=== PATIENT | female | born 1990 | race Caucasian/White ===

== ENCOUNTER 2017-05-04 12:02 | Emergency (ER) | payer BC, SELFPAY ==
[~2017-05-04] VITALS: Ht 165.1 cm; Wt 74.8 kg
[~2017-05-04 12:02] MED LIST: ACYC400 PO; CYCL10 PO; DIAZ10 PO; HYDACE5 PO; IBUP800 PO; LEVO750 PO; NAPR500 PO; NITR100CA PO; Naprosyn500 MG PO; PHENA200 PO; Valium5 MG PO
[2017-05-04] MEDS ORDERED: VENL75ER PO (15:24)
[2017-05-04] MEDS ORDERED: GABA300 PO (15:24)
[2017-05-04] MEDS ORDERED: COPAXONE40 MG/1 ML SQ (15:24)
[2017-05-04] MEDS ORDERED: Percocet 5-3251 EACH PO (16:59)
[2018-02-23] MEDS ORDERED: Percocet 5-3251 EACH PO (11:44)
[2018-02-23] MEDS ORDERED: IBUP800 PO (11:45)
== END 2017-05-04 17:06 | disposition home or self-care (01) ==
LOC: ER 12:02
DX: M54.31 Sciatica, right side (principal); F41.8 Other specified anxiety disorders; G35 Multiple sclerosis; Z79.899 Other long term (current) drug therapy
CPT/HCPCS: 81000; 81025; 96372; 99283; J1170

== ENCOUNTER 2017-05-07 10:58 | Day surgery (SDC) | payer BC, SELFPAY ==
[~2017-05-07 10:58] MED LIST changes: +COPAXONE40 MG/1 ML SQ; +GABA300 PO; +Percocet 5-3251 EACH PO; +VENL75ER PO
[2017-05-08] MEDS ORDERED: CYAN500 PO (09:40)
[2017-05-08] MEDS ORDERED: ERGO400 PO (09:40)
[2017-05-08] MEDS ORDERED: FOLI1 PO (09:40)
[2018-02-23] MEDS ORDERED: Percocet 5-3251 EACH PO (11:44)
[2018-02-23] MEDS ORDERED: IBUP800 PO (11:45)
== END 2017-05-07 12:40 | disposition home or self-care (01) ==
LOC: ATC 10:58
DX: G35 Multiple sclerosis (principal)
CPT/HCPCS: 96365; J2930

== ENCOUNTER 2017-05-08 00:51 | Day surgery (SDC) | payer BC, SELFPAY ==
[2017-05-08] MEDS ORDERED: FOLI1 PO (09:40)
[2017-05-08] MEDS ORDERED: CYAN500 PO (09:40)
[2017-05-08] MEDS ORDERED: ERGO400 PO (09:40)
[2018-02-23] MEDS ORDERED: Percocet 5-3251 EACH PO (11:44)
[2018-02-23] MEDS ORDERED: IBUP800 PO (11:45)
== END 2017-05-08 10:06 | disposition home or self-care (01) ==
LOC: ATC 00:51
DX: G35 Multiple sclerosis (principal)
CPT/HCPCS: 96365; J2930

== ENCOUNTER 2017-05-09 00:42 | Day surgery (SDC) | payer BC, SELFPAY ==
[~2017-05-09 00:42] MED LIST changes: +CYAN500 PO; +ERGO400 PO; +FOLI1 PO
[2018-02-23] MEDS ORDERED: Percocet 5-3251 EACH PO (11:44)
[2018-02-23] MEDS ORDERED: IBUP800 PO (11:45)
== END 2017-05-09 10:07 | disposition home or self-care (01) ==
LOC: ATC 00:42
DX: G35 Multiple sclerosis (principal)
CPT/HCPCS: 96365; J2930

== ENCOUNTER 2018-05-07 14:55 | Emergency (ER) | payer BC ==
[~2018-05-07] VITALS: Ht 165.1 cm; Wt 83.0 kg
[2018-05-07 17:26] LABS: Source, Urine Clean Catch
[2018-05-07 17:32] LABS: Appearance, Urine Clear (Clear); Bilirubin, Urine Neg (Neg); Blood, Urine Neg (Neg); Color, Urine Yellow (P-Yellow); Glucose Qualitative, Urine Neg (Neg); Ketones, Urine Neg (Neg); Leukocyte Esterase, Urine Neg (Neg); Nitrite, Urine Neg (Neg); Protein, Urine Neg (Neg); Specific Gravity, Urine 1.015 (1.003-1.022); Urobilinogen, Urine NORM (Normal); pH, Urine 6.5 (5.0-8.0)
[2018-05-07 18:31] LABS: BASOPHILS ABSOLUTE AUTO 0.03 K/mm3 (0.00-0.23); BASOPHILS PERCENT AUTO 0 % (0-2); EOSINOPHILS ABSOLUTE AUTO 0.37 K/mm3 (0.00-0.68); EOSINOPHILS PERCENT AUTO 3 % (0-6); Hematocrit 42.7 % (33.0-51.0); Hemoglobin 13.6 g/dL (11.5-16.0); IMMATURE GRAN ABSOLUTE AUTO 0.05 K/mm3 (0.00-0.10); IMMATURE GRAN PERCENT AUTO 0 % (0-1); LYMPHOCYTES ABSOLUTE AUTO 2.23 K/mm3 (0.84-5.20); LYMPHOCYTES PERCENT AUTO 16 % (21-46); MONOCYTES ABSOLUTE AUTO 0.65 K/mm3 (0.16-1.47); MONOCYTES PERCENT AUTO 5 % (4-13); Mean Corpuscular HGB 29.3 pg (26.0-34.0); Mean Corpuscular HGB Conc 31.9 g/dL (31.5-36.5); Mean Corpuscular Volume 92 fL (80-100); Mean Platelet Volume 10.6 fL (9.1-12.4); NEUTROPHILS ABSOLUTE AUTO 10.84 K/mm3 (1.96-9.15); NEUTROPHILS PERCENT AUTO 77 % (41-73); Platelet Count 309 K/mm3 (150-400); RDW Standard Deviation 43.9 fL (35.1-46.3); Red Blood Cell Count 4.64 M/mm3 (3.80-5.20); White Blood Cell Count 14.17 K/mm3 (4.00-11.30)
[2018-05-07 18:46] LABS: Alanine Aminotransfer (ALT/SGP 43 U/L (12-78); Albumin, Blood 3.4 g/dL (3.4-5.0); Albumin/Globulin Ratio 0.9 (0.8-1.8); Alk Phos 98 U/L (50-136); Anion Gap 6 mmol/L (6-16); Aspartate Aminotrans (AST/SGOT 16 U/L (12-37); Bilirubin, Total 0.2 mg/dL (0.1-1.0); Blood Urea Nitrogen 10 mg/dL (8-24); Bun/Creatinine Ratio 10.3 (12.0-20.0); CO2, Blood 27 mmol/L (21-32); Calcium, Blood 8.5 mg/dL (8.5-10.1); Chloride, Blood 108 mmol/L (98-108); Creatinine, Blood 0.98 mg/dL (0.40-1.00); Free Thyroxine 0.95 ng/dL (0.70-1.60); Globulin, Blood 3.7 g/dL (2.2-4.0); Glomerular Filtration Rate >60 (60-); Glucose, Blood 76 mg/dL (70-99); Potassium, Blood 3.9 mmol/L (3.5-5.5); Sodium, Blood 141 mmol/L (136-145); Total Protein, Blood 7.1 g/dL (6.4-8.2)
[2018-05-07 18:50] LABS: Triiodothyronine, Free 2.29 pg/mL (2.18-3.98)
[2018-05-07] MEDS ORDERED: IBUP600 PO (18:51)
[2018-05-07] MEDS ORDERED: Norco 5-325 Ta1 EACH PO (18:51)
== END 2018-05-07 19:08 | disposition home or self-care (01) ==
LOC: ER 14:55
PROVIDERS: Emergency Medicine
DX: G35 Multiple sclerosis (principal); Z79.899 Other long term (current) drug therapy; F17.200 Nicotine dependence, unspecified, uncomplicated
CPT/HCPCS: 36415; 80053; 81003; 81025; 84439; 84443; 84481; 85025; 99283

== ENCOUNTER 2018-11-09 21:38 | Emergency (ER) | payer BC, OTHER ==
[~2018-11-09] VITALS: Ht 157.5 cm; Wt 86.2 kg
[~2018-11-09 21:38] MED LIST changes: +IBUP600 PO; +Norco 5-325 Ta1 EACH PO
[2018-11-09] MEDS ORDERED: Nortriptyline H50 MG PO (22:50)
[2018-11-09] MEDS ORDERED: TECFIDERA240 MG PO (22:50)
[2018-11-09] MEDS ORDERED: RIZATRIPTAN10 M2 PO (22:50)
[2018-11-09 23:14] LABS: Source, Urine Voided
[2018-11-09 23:19] LABS: BASOPHILS ABSOLUTE AUTO 0.01 K/mm3 (0.00-0.23); BASOPHILS PERCENT AUTO 0 % (0-2); Bilirubin, Urine Neg (Neg); Blood, Urine 5+ (Neg); EOSINOPHILS ABSOLUTE AUTO 0.55 K/mm3 (0.00-0.68); EOSINOPHILS PERCENT AUTO 8 % (0-6); Glucose Qualitative, Urine Neg (Neg); Hematocrit 41.3 % (33.0-51.0); Hemoglobin 13.5 g/dL (11.5-16.0); IMMATURE GRAN ABSOLUTE AUTO 0.01 K/mm3 (0.00-0.10); IMMATURE GRAN PERCENT AUTO 0 % (0-1); Ketones, Urine Neg (Neg); LYMPHOCYTES ABSOLUTE AUTO 1.59 K/mm3 (0.84-5.20); LYMPHOCYTES PERCENT AUTO 23 % (21-46); Leukocyte Esterase, Urine 1+ (Neg); MONOCYTES PERCENT AUTO 6 % (4-13); Mean Corpuscular HGB Conc 32.7 g/dL (31.5-36.5); Mean Corpuscular Volume 95 fL (80-100); Mean Platelet Volume 10.6 fL (9.1-12.4); NEUTROPHILS ABSOLUTE AUTO 4.34 K/mm3 (1.96-9.15); NEUTROPHILS PERCENT AUTO 63 % (41-73); Nitrite, Urine Neg (Neg); Platelet Count 207 K/mm3 (150-400); Protein, Urine Neg (Neg); RDW Coefficient Variation 13.2 % (11.7-14.2); RDW Standard Deviation 46.4 fL (35.1-46.3); Red Blood Cell Count 4.35 M/mm3 (3.80-5.20); Urobilinogen, Urine 1+ (Normal)
[2018-11-09 23:50] LABS: Alanine Aminotransfer (ALT/SGP 245 U/L (12-78); Albumin, Blood 3.4 g/dL (3.4-5.0); Albumin/Globulin Ratio 1.1 (0.8-1.8); Alk Phos 71 U/L (50-136); Anion Gap 7 mmol/L (6-16); Aspartate Aminotrans (AST/SGOT 87 U/L (12-37); Beta HCG, Quantitative, Serum <1 mIU/mL (0-3); Bilirubin, Total 0.2 mg/dL (0.1-1.0); Blood Urea Nitrogen 8 mg/dL (8-24); Bun/Creatinine Ratio 11.4 (12.0-20.0); CO2, Blood 25 mmol/L (21-32); Calcium, Blood 8.2 mg/dL (8.5-10.1); Chloride, Blood 113 mmol/L (98-108); Globulin, Blood 3.2 g/dL (2.2-4.0); Glomerular Filtration Rate >60 (60-); Glucose, Blood 90 mg/dL (70-99); Potassium, Blood 3.6 mmol/L (3.5-5.5); Sodium, Blood 145 mmol/L (136-145); Total Protein, Blood 6.6 g/dL (6.4-8.2)
[2018-11-09 23:53] LABS: Appearance, Urine Clear (Clear); Color, Urine Yellow (P-Yellow)
[2018-11-09 23:54] LABS: Bacteria Rare /hpf; Red Blood Cells, Urine 50-100 /hpf (0-2); Squamous Epithelial Cells Few /hpf (Few); White Blood Cells, Urine Rare /hpf (0-5)
[2018-11-10] MEDS ORDERED: Neurontin 300300 MG PO (00:18)
== END 2018-11-10 00:51 | disposition home or self-care (01) ==
LOC: ER 21:38
PROVIDERS: Emergency Medicine
DX: G35 Multiple sclerosis (principal); Z88.8 Allergy status to other drugs, medicaments and biological substances; Z79.899 Other long term (current) drug therapy; F17.210 Nicotine dependence, cigarettes, uncomplicated
CPT/HCPCS: 36415; 80053; 81001; 83690; 84702; 85025; 87086; 96361; 96374; 96375; 99283-25; A9270; J1170; J2405; J7030

== ENCOUNTER 2020-07-30 18:25 | Emergency (ER) | payer OTHER ==
[~2020-07-30] VITALS: Ht 165.1 cm; Wt 84.8 kg
[~2020-07-30 18:25] MED LIST changes: +Neurontin 300300 MG PO; +Nortriptyline H50 MG PO; +RIZATRIPTAN10 M2 PO; +TECFIDERA240 MG PO
[2020-07-30] MEDS ORDERED: Gabapentin600 MG PO (19:01)
[2020-07-30] MEDS ORDERED: JENCYCLA0.35 MG PO (19:02)
[2020-07-30] MEDS ORDERED: Rituxan10 MG/ML IV (19:03)
[2020-07-30 19:51] LABS: BASOPHILS ABSOLUTE AUTO 0.02 K/mm3 (0.00-0.23); BASOPHILS PERCENT AUTO 0 % (0-2); EOSINOPHILS ABSOLUTE AUTO 0.74 K/mm3 (0.00-0.68); EOSINOPHILS PERCENT AUTO 5 % (0-6); IMMATURE GRAN ABSOLUTE AUTO 0.04 K/mm3 (0.00-0.10); IMMATURE GRAN PERCENT AUTO 0 % (0-1); LYMPHOCYTES ABSOLUTE AUTO 2.87 K/mm3 (0.84-5.20); LYMPHOCYTES PERCENT AUTO 20 % (21-46); MONOCYTES ABSOLUTE AUTO 1.03 K/mm3 (0.16-1.47); MONOCYTES PERCENT AUTO 7 % (4-13); Mean Corpuscular HGB 31.6 pg (26.0-34.0); Mean Corpuscular HGB Conc 33.3 g/dL (31.5-36.5); Mean Corpuscular Volume 95 fL (80-100); Mean Platelet Volume 11.1 fL (9.1-12.4); NEUTROPHILS ABSOLUTE AUTO 9.34 K/mm3 (1.96-9.15); NEUTROPHILS PERCENT AUTO 67 % (41-73); Platelet Count 264 K/mm3 (150-400); RDW Coefficient Variation 13.2 % (11.7-14.2); RDW Standard Deviation 46.3 fL (35.1-46.3); Red Blood Cell Count 5.06 M/mm3 (3.80-5.20); White Blood Cell Count 14.04 K/mm3 (4.00-11.30)
[2020-07-30 20:06] LABS: C-REACTIVE PROTEIN, EXT RANGE <0.290 mg/dL (0.000-0.300)
[2020-07-30 20:26] LABS: Alanine Aminotransfer (ALT/SGP 25 U/L (12-78); Albumin, Blood 3.9 g/dL (3.4-5.0); Albumin/Globulin Ratio 1.3 (0.8-1.8); Alk Phos 56 U/L (50-136); Anion Gap 5 mmol/L (6-16); Aspartate Aminotrans (AST/SGOT 10 U/L (12-37); Bilirubin, Total 0.2 mg/dL (0.1-1.0); Blood Urea Nitrogen 15 mg/dL (8-24); Bun/Creatinine Ratio 16.1 (12.0-20.0); CO2, Blood 25 mmol/L (21-32); Calcium, Blood 8.6 mg/dL (8.5-10.1); Chloride, Blood 111 mmol/L (98-108); Creatinine, Blood 0.93 mg/dL (0.40-1.00); Globulin, Blood 2.9 g/dL (2.2-4.0); Glomerular Filtration Rate >60 (60-); Glucose, Blood 79 mg/dL (70-99); Potassium, Blood 3.8 mmol/L (3.5-5.5); Sodium, Blood 141 mmol/L (136-145); Total Protein, Blood 6.8 g/dL (6.4-8.2)
[2020-07-30 22:10] LABS: Source, Urine Clean Catch
[2020-07-30 22:15] LABS: Bilirubin, Urine Neg (Neg); Blood, Urine 2+ (Neg); Glucose Qualitative, Urine Neg (Neg); Ketones, Urine Neg (Neg); Leukocyte Esterase, Urine 1+ (Neg); Nitrite, Urine Neg (Neg); Protein, Urine Neg (Neg); Specific Gravity, Urine 1.025 (1.003-1.022); Urobilinogen, Urine 1+ (Normal)
[2020-07-30 22:18] LABS: Appearance, Urine Clear (Clear); Color, Urine Yellow (P-Yellow)
[2020-07-30 22:23] LABS: Amorphous Light (0-Heavy); Bacteria Few /hpf; Red Blood Cells, Urine 0-2 /hpf (0-2); Squamous Epithelial Cells Mod /hpf (Few)
== END 2020-07-30 22:20 | disposition home or self-care (01) ==
LOC: ER 18:25
PROVIDERS: Physician Assistant
DX: R07.9 Chest pain, unspecified (principal); F17.210 Nicotine dependence, cigarettes, uncomplicated; Z79.899 Other long term (current) drug therapy
CPT/HCPCS: 36415; 71046; 80053; 81001; 85025; 85651; 86140; 93005; 93010; 96374; 99284-25; J1885

== ENCOUNTER 2021-08-22 19:11 | Emergency (ER) | payer OTHER ==
[~2021-08-22] VITALS: Ht 165.1 cm; Wt 86.2 kg
[~2021-08-22 19:11] MED LIST changes: +Gabapentin600 MG PO; +JENCYCLA0.35 MG PO; +Rituxan10 MG/ML IV
[2021-08-22 20:40] LABS: Source, Urine Clean Catch
[2021-08-22 20:42] LABS: Appearance, Urine Hazy (Clear); Bilirubin, Urine Neg (Neg); Blood, Urine 3+ (Neg); Color, Urine Yellow (P-Yellow); Glucose Qualitative, Urine Neg (Neg); Ketones, Urine Neg (Neg); Leukocyte Esterase, Urine Neg (Neg); Nitrite, Urine Neg (Neg); Protein, Urine Neg (Neg); Urobilinogen, Urine NORM (Normal)
[2021-08-22 20:48] LABS: Squamous Epithelial Cells Mod /hpf (Few)
[2021-08-22 20:49] LABS: Bacteria Few /hpf
[2021-08-22 22:17] LABS: BASOPHILS ABSOLUTE AUTO 0.01 K/mm3 (0.00-0.23); BASOPHILS PERCENT AUTO 0 % (0-2); EOSINOPHILS ABSOLUTE AUTO 0.14 K/mm3 (0.00-0.68); EOSINOPHILS PERCENT AUTO 2 % (0-6); Hematocrit 46.2 % (33.0-51.0); Hemoglobin 15.6 g/dL (11.5-16.0); IMMATURE GRAN ABSOLUTE AUTO 0.01 K/mm3 (0.00-0.10); IMMATURE GRAN PERCENT AUTO 0 % (0-1); LYMPHOCYTES ABSOLUTE AUTO 2.06 K/mm3 (0.84-5.20); LYMPHOCYTES PERCENT AUTO 29 % (21-46); MONOCYTES ABSOLUTE AUTO 0.47 K/mm3 (0.16-1.47); MONOCYTES PERCENT AUTO 7 % (4-13); Mean Corpuscular HGB Conc 33.8 g/dL (31.5-36.5); Mean Corpuscular Volume 92 fL (80-100); Mean Platelet Volume 12.5 fL (9.1-12.4); NEUTROPHILS ABSOLUTE AUTO 4.49 K/mm3 (1.96-9.15); NEUTROPHILS PERCENT AUTO 63 % (41-73); Platelet Count 196 K/mm3 (150-400); RDW Coefficient Variation 12.5 % (11.7-14.2); RDW Standard Deviation 42.5 fL (35.1-46.3); Red Blood Cell Count 5.03 M/mm3 (3.80-5.20); White Blood Cell Count 7.18 K/mm3 (4.00-11.30)
[2021-08-22 22:35] LABS: Albumin, Blood 3.9 g/dL (3.4-5.0); Albumin/Globulin Ratio 1.3 (0.8-1.8); Bilirubin, Total 0.8 mg/dL (0.1-1.0); Bun/Creatinine Ratio 14.1 (12.0-20.0); Calcium, Blood 8.7 mg/dL (8.5-10.1); Creatinine, Blood 0.85 mg/dL (0.40-1.00); Globulin, Blood 2.9 g/dL (2.2-4.0); Potassium, Blood 3.5 mmol/L (3.5-5.5); Total Protein, Blood 6.8 g/dL (6.4-8.2)
[2021-08-22] MEDS ORDERED: ONDA4ODT MM (23:50)
== END 2021-08-22 23:59 | disposition home or self-care (01) ==
LOC: ER 19:11
PROVIDERS: Physician Assistant
DX: U07.1 COVID-19 (principal); G35 Multiple sclerosis; F17.210 Nicotine dependence, cigarettes, uncomplicated; Z79.899 Other long term (current) drug therapy
CPT/HCPCS: 36415; 80053; 81001; 83690; 85025; J1885; J2405; J7030

== ENCOUNTER → 2022-12-25 | Outpatient (CLI) | payer OTHER ==
[~2022-12-25] MED LIST changes: +ONDA4ODT MM
== END | disposition home or self-care (01) ==
LOC: LAB SHORT 10:31 → LAB 10:31
DX: N39.0 Urinary tract infection, site not specified (principal)
CPT/HCPCS: 87077; 87086; 87186

== ENCOUNTER 2023-07-17 08:04 | Emergency (ER) | payer OTHER ==
[~2023-07-17] VITALS: Ht 165.1 cm; Wt 93.0 kg
[2023-07-17] MEDS ORDERED: TOPI15C (08:28)
[2023-07-17 09:00] LABS: Source, Urine Clean Catch
[2023-07-17 09:04] LABS: BASOPHILS ABSOLUTE AUTO 0.02 K/mm3 (0.00-0.23); BASOPHILS PERCENT AUTO 0 % (0-2); EOSINOPHILS ABSOLUTE AUTO 0.24 K/mm3 (0.00-0.68); EOSINOPHILS PERCENT AUTO 2 % (0-6); Hematocrit 43.8 % (33.0-51.0); Hemoglobin 14.4 g/dL (11.5-16.0); IMMATURE GRAN ABSOLUTE AUTO 0.03 K/mm3 (0.00-0.10); IMMATURE GRAN PERCENT AUTO 0 % (0-1); LYMPHOCYTES ABSOLUTE AUTO 2.17 K/mm3 (0.84-5.20); LYMPHOCYTES PERCENT AUTO 19 % (21-46); MONOCYTES PERCENT AUTO 5 % (4-13); Mean Corpuscular HGB Conc 32.9 g/dL (31.5-36.5); Mean Corpuscular Volume 94 fL (80-100); NEUTROPHILS ABSOLUTE AUTO 8.46 K/mm3 (1.96-9.15); NEUTROPHILS PERCENT AUTO 73 % (41-73); Platelet Count 234 K/mm3 (150-400); RDW Standard Deviation 48.4 fL (35.1-46.3); Red Blood Cell Count 4.64 M/mm3 (3.80-5.20); White Blood Cell Count 11.52 K/mm3 (4.00-11.30)
[2023-07-17 09:06] LABS: Appearance, Urine Clear (Clear); Bilirubin, Urine Neg (Neg); Blood, Urine Neg (Neg); Color, Urine Yellow (P-Yellow); Glucose Qualitative, Urine Neg (Neg); Ketones, Urine Neg (Neg); Leukocyte Esterase, Urine Neg (Neg); Nitrite, Urine Neg (Neg); Protein, Urine Neg (Neg); Urobilinogen, Urine NORM (Normal)
[2023-07-17 09:17] LABS: Alanine Aminotransfer (ALT/SGP 37 U/L (12-78); Albumin, Blood 3.8 g/dL (3.4-5.0); Albumin/Globulin Ratio 1.4 (0.8-1.8); Alk Phos 55 U/L (50-136); Anion Gap 6 mmol/L (3-11); Aspartate Aminotrans (AST/SGOT 20 U/L (12-37); Beta HCG, Quantitative, Serum <1 mIU/mL (0-3); Bilirubin, Total 0.3 mg/dL (0.1-1.0); Blood Urea Nitrogen 11 mg/dL (8-24); Bun/Creatinine Ratio 14.1 (12.0-20.0); CO2, Blood 24 mmol/L (21-32); Calcium, Blood 8.6 mg/dL (8.5-10.1); Chloride, Blood 115 mmol/L (98-108); Creatinine, Blood 0.78 mg/dL (0.40-1.00); Globulin, Blood 2.7 g/dL (2.2-4.0); Glomerular Filtration Rate 104 (60-); Glucose, Blood 76 mg/dL (70-99); Potassium, Blood 3.9 mmol/L (3.5-5.5); Sodium, Blood 141 mmol/L (136-145); Total Protein, Blood 6.5 g/dL (6.4-8.2)
[2023-07-17] MEDS ORDERED: Ketorolac Tromethamine 30mg Vial IV ONE (09:40)
[2023-07-17] MEDS ORDERED: NS 1,000 ML IV SCH (09:40)
[2023-07-17] MEDS ORDERED: Ondansetron HCl 2 MG / ML 2ML Vial IV ONE (09:40)
[2023-07-17] MEDS ORDERED: Norco 5-325 Ta1 EACH PO (11:14)
[2023-07-17] MEDS ORDERED: HYDROcodone 5-APAP 325 TAB PO ONE (11:15)
[2023-07-17 11:21] VITALS: BP 110/87
== END 2023-07-17 11:27 | disposition home or self-care (01) ==
LOC: ER 08:04
PROVIDERS: Physician Assistant
DX: N83.01 Follicular cyst of right ovary (principal); G35 Multiple sclerosis; F17.210 Nicotine dependence, cigarettes, uncomplicated; Z79.899 Other long term (current) drug therapy
CPT/HCPCS: 74177; 80053; 81003; 84702; 85025; 96361; 96374-59; 96375; 99284-25; A9270; J1885; J2405; J7030; Q9967

== ENCOUNTER 2024-02-28 15:28 | Emergency (ER) | payer OTHER ==
[~2024-02-28] VITALS: Ht 165.1 cm; Wt 93.4 kg
[~2024-02-28 15:28] MED LIST changes: +TOPI15C
[2024-02-28 15:40] VITALS: BP 138/103
[2024-02-28] MEDS ORDERED: DiphenhydrAMINE HCl 50 MG/ML 1ML Vial IV ONE (15:45)
[2024-02-28] MEDS ORDERED: Prochlorperazine Edisylate 10 mg Vial IV ONE (15:45)
[2024-02-28] MEDS ORDERED: Ketorolac Tromethamine 15mg Vial IV ONE (15:45)
[2024-02-28] MEDS ORDERED: NS 1,000 ML IV SCH (15:45)
== END 2024-02-28 16:58 | disposition home or self-care (01) ==
LOC: ER 15:28
DX: G43.909 Migraine, unspecified, not intractable, without status migrainosus (principal); G35 Multiple sclerosis; J45.909 Unspecified asthma, uncomplicated; F17.210 Nicotine dependence, cigarettes, uncomplicated; Z79.899 Other long term (current) drug therapy; Z59.89 Other problems related to housing and economic circumstances
CPT/HCPCS: 81000; 96361; 96374; 96375; 99283-25; J0780; J1200; J1885; J7030

== ENCOUNTER 2024-12-05 05:09 | Inpatient (IN) | payer OTHER ==
[2024-12-05] VITALS (18 sets, daily range): BP systolic 101–139; BP diastolic 60–98
[~2024-12-05] VITALS: Ht 165.1 cm; Wt 111.4 kg
[2024-12-05] MEDS ORDERED: Metoclopramide HCl 5MG / ML 2ML Vial IV SCH (05:20)
[2024-12-05] MEDS ORDERED: Citric Acid/Sodium Citrate 30 ML BTL PO SCH (05:20)
[2024-12-05] MEDS ORDERED: CeFAZolin Sodium 2,000 MG in NS 100 ML IV SCH (05:20)
[2024-12-05 05:52] LABS: BASOPHILS ABSOLUTE AUTO 0.02 K/mm3 (0.00-0.23); BASOPHILS PERCENT AUTO 0 % (0-2); EOSINOPHILS ABSOLUTE AUTO 0.21 K/mm3 (0.00-0.68); EOSINOPHILS PERCENT AUTO 2 % (0-6); Hematocrit 35.6 % (33.0-51.0); Hemoglobin 12.2 g/dL (11.5-16.0); IMMATURE GRAN ABSOLUTE AUTO 0.10 K/mm3 (0.00-0.10); IMMATURE GRAN PERCENT AUTO 1 % (0-1); LYMPHOCYTES ABSOLUTE AUTO 2.15 K/mm3 (0.84-5.20); LYMPHOCYTES PERCENT AUTO 16 % (21-46); MONOCYTES ABSOLUTE AUTO 0.89 K/mm3 (0.16-1.47); MONOCYTES PERCENT AUTO 6 % (4-13); Mean Corpuscular HGB Conc 34.3 g/dL (31.5-36.5); Mean Corpuscular Volume 91 fL (80-100); NEUTROPHILS ABSOLUTE AUTO 10.53 K/mm3 (1.96-9.15); NEUTROPHILS PERCENT AUTO 76 % (41-73); NRBC ABSOLUTE 0.00 K/mm3 (0.00-0.02); NRBC Auto 0.0 /100 WBC (0.0-0.2); Platelet Count 240 K/mm3 (150-400); RDW Coefficient Variation 14.4 % (11.7-14.2); RDW Standard Deviation 47.9 fL (35.1-46.3)
[2024-12-05] MEDS ORDERED: FentaNYL Citrate 50 MCG/ML 2 ML Injection ONE (07:14)
[2024-12-05] MEDS ORDERED: Metoclopramide HCl 5MG / ML 2ML Vial ONE (07:24)
[2024-12-05] MEDS ORDERED: EpiNEPhrine 1 MG/1 ML 1ML Vial ONE (07:24)
[2024-12-05] MEDS ORDERED: Ondansetron HCl 2 MG / ML 2ML Vial ONE (07:24)
[2024-12-05] MEDS ORDERED: FentaNYL Citrate 50 MCG/ML 2 ML Injection IV PRN ×2 (07:25→07:30)
[2024-12-05] MEDS ORDERED: Morphine Sulfate 4 MG/1 ML Injection IV PRN ×3 (07:25→09:55)
[2024-12-05] MEDS ORDERED: Metoclopramide HCl 5MG / ML 2ML Vial IV PRN (07:30)
[2024-12-05] MEDS ORDERED: Ondansetron HCl 2 MG / ML 2ML Vial IV PRN ×2 (07:30→09:55)
[2024-12-05] MEDS ORDERED: Oxytocin 10 Unit / ML Vial ONE (08:14)
[2024-12-05 08:32] LABS: PCO2 Cord - Venous 44.5 mmHg (40-50); PO2 Cord - Venous 29.7 mmHg (28-32); pH Umbilical Cord - Venous 7.35 (7.26-7.35)
--- NOTE | 2024-12-05 08:33 | NUR ---
12/05/24 0833 VICKI MCDONALD VIABLE FEMALE BORN AT 0815, APGARS 9/9. CORD GASSES SENT WITH RT LUKE, CORD BLOOD SENT WITH JAYASHREE Britton RN.
[2024-12-05] MEDS ORDERED: Magnesium Hydroxide Conc 10 ML UDC PO PRN (09:50)
[2024-12-05] MEDS ORDERED: OXYTOCIN/RINGER'S LACTATE 500 ML IV SCH (09:55)
[2024-12-05] MEDS ORDERED: Methylergonovine Maleate 0.2MG / ML 1ML Amp IM PRN (09:55)
[2024-12-05] MEDS ORDERED: OxyCODONE 5 mg/Acetamin 325 mg TABLET PO PRN (09:55)
[2024-12-05] MEDS ORDERED: Ketorolac Tromethamine 30mg Vial IV SCH (10:00)
[2024-12-05] MEDS ORDERED: Tranexamic Acid 100 ML IV PRN (10:15)
[2024-12-05] MEDS ORDERED: CeFAZolin Sodium 1,000 MG in NS 50 ML IV SCH (16:00)
--- NOTE | 2024-12-06 01:59 | NUR ---
ASSUMED PT CARE, REPORT FROM MAGO LEE
[2024-12-06 03:47] VITALS: BP 111/57
[2024-12-06 05:49] LABS: BASOPHILS ABSOLUTE AUTO 0.03 K/mm3 (0.00-0.23); BASOPHILS PERCENT AUTO 0 % (0-2); EOSINOPHILS ABSOLUTE AUTO 0.22 K/mm3 (0.00-0.68); EOSINOPHILS PERCENT AUTO 1 % (0-6); Hematocrit 36.1 % (33.0-51.0); Hemoglobin 11.9 g/dL (11.5-16.0); IMMATURE GRAN ABSOLUTE AUTO 0.12 K/mm3 (0.00-0.10); IMMATURE GRAN PERCENT AUTO 1 % (0-1); LYMPHOCYTES ABSOLUTE AUTO 1.78 K/mm3 (0.84-5.20); LYMPHOCYTES PERCENT AUTO 10 % (21-46); MONOCYTES ABSOLUTE AUTO 1.13 K/mm3 (0.16-1.47); MONOCYTES PERCENT AUTO 6 % (4-13); Mean Corpuscular HGB Conc 33.0 g/dL (31.5-36.5); Mean Corpuscular Volume 95 fL (80-100); NEUTROPHILS ABSOLUTE AUTO 14.52 K/mm3 (1.96-9.15); NEUTROPHILS PERCENT AUTO 82 % (41-73); NRBC ABSOLUTE 0.00 K/mm3 (0.00-0.02); NRBC Auto 0.0 /100 WBC (0.0-0.2); Platelet Count 219 K/mm3 (150-400); RDW Coefficient Variation 14.6 % (11.7-14.2); RDW Standard Deviation 50.2 fL (35.1-46.3)
[2024-12-06 07:49] VITALS: BP 136/82
[2024-12-06] MEDS ORDERED: Prenatal Vit/FE Fumarate/FA 1 Tab PO SCH (09:00)
--- NOTE | 2024-12-06 10:02 | NUR ---
0745: PT REPORTS PAIN 12/03. PT BREATHING THROUGH HER DISCOMFORT. RX GIVEN IMMEDIATELY. NOTICED PT WAS DOING A LOT OF SHALLOW COUGHS. PT DENIES FEELING SOB OR HAVING ANY CHEST PAIN BUT REPORTS THAT SHE HAS A HX OF ASTHMA AND IS A SMOKER SO JUST FEELS LIKE SHE HAS SOME MUCOUS IN HER LUNGS. HER LUNGS SOUND CLEAR BUT SLIGHT COARSENESS OVER TRACHEA. PT ABLE TO COUGH AND CLEAR SHE FEELS BUT STATES IT IS VERY PAINFUL TO MOVE. I.S. GIVEN AND INSTRUCTED ON USE. PT ENCOURAGED TO USE Q1 HR TODAY. ONCE PAIN IS MANAGABLE PT ENCOURAGED TO BE UP AMBULATING IN THE HALLS. PT VERBALIZES UNDERSTANDING AND REPORTS SHE WANTS TO DO THAT. NB FUSSY AND HUNGRY SO PT HAPPY TO HOLD NB AND FEED NB AT THIS TIME.
[2024-12-06 12:09] VITALS: BP 139/65
--- NOTE | 2024-12-06 12:14 | NUR ---
RESTING COMFORTABLY. HECTOR DISCOMFORT AND ABLE TO REST. NO COMPLAINTS AT THIS TIME.
--- NOTE | 2024-12-06 14:28 | NUR ---
1400: PT REPORTS HER PAIN HASN'T LESSENED AFTER ONE PERCOCET. PT OFFERED ANOTHER PERCOCET PER PROVIDER ORDER BUT PT DECLINED AT THIS TIME. SHE REPORTS SHE WANTS TO GIVE IT MORE TIME TO KICK IN AND WILL NOTIFY RN IF SHE WANTS ANOTHER PERCOCET.
[2024-12-06 15:50] VITALS: BP 135/85
[2024-12-06 19:28] VITALS: BP 149/73
[2024-12-06 20:33] VITALS: BP 126/66
[2024-12-06] MEDS ORDERED: Magnesium Hydroxide Conc 10 ML UDC PO SCH (21:00)
[2024-12-07 00:08] VITALS: BP 120/59
[2024-12-07 04:38] VITALS: BP 118/58
[2024-12-07 07:38] VITALS: BP 144/87
--- NOTE | 2024-12-07 09:34 | NUR ---
0900: UP AMBULATING IN THE HALLS. HECTOR WELL. 0930: UP IN SHOWER. HECTOR SELF AND NB CARE WELL. PT ANXIOUS TO GO HOME TODAY.
[2024-12-07] MEDS ORDERED: IBU800 M1 PO (10:22)
[2024-12-07] MEDS ORDERED: DOCU100 PO (10:22)
[2024-12-07] MEDS ORDERED: Percocet 5-3251 EACH PO (10:22)
[2024-12-07 11:04] VITALS: BP 117/67
== END 2024-12-07 12:00 | disposition home or self-care (01) | DRG 787 ==
LOC: BC 05:09
PROVIDERS: ADMIT Obstetrics & Gynecology
PROC: 3E03329 Introduction of Other Anti-infective into Peripheral Vein, Percutaneous Approach (ICD-10-PCS; 2024-12-05)
PROC: 10D00Z1 Extraction of Products of Conception, Low, Open Approach (ICD-10-PCS; principal; 2024-12-05 07:30)
DX: O34.211 Maternal care for low transverse scar from previous cesarean delivery (principal); O23.43 Unspecified infection of urinary tract in pregnancy, third trimester; O99.354 Diseases of the nervous system complicating childbirth; Z3A.39 39 weeks gestation of pregnancy; Z37.0 Single live birth; G43.909 Migraine, unspecified, not intractable, without status migrainosus; O99.334 Smoking (tobacco) complicating childbirth; F17.210 Nicotine dependence, cigarettes, uncomplicated; Z79.899 Other long term (current) drug therapy
CPT/HCPCS: 36415; 82803; 85025; 86850; 86900; 86901; 86923; 90707; A9270; J0169; J0690; J1885; J2405; J2590; J2765; J3010; J7120